=== PATIENT | male | born 1975 | race Caucasian/White ===

== ENCOUNTER 2022-07-15 20:41 | Emergency (ER) | payer OTHER ==
[~2022-07-15] VITALS: Ht 188 cm; Wt 99.1 kg
[2022-07-15] VITALS (7 sets, daily range): BP systolic 110–121; BP diastolic 74–88
[2022-07-15] MEDS ORDERED: ULTRAM50 MG PO (22:40)
[2022-07-15] MEDS ORDERED: CYCLOBENZAPRINE10 MG PO (22:42)
== END 2022-07-15 22:30 | disposition home or self-care (01) | DRG 563 ==
LOC: ED 20:41
DX: S39.012A Strain of muscle, fascia and tendon of lower back, initial encounter (principal); S29.012A Strain of muscle and tendon of back wall of thorax, initial encounter; R25.2 Cramp and spasm

== ENCOUNTER 2022-11-28 19:26 | Emergency (ER) | payer OTHER, MEDICARE ==
[2022-11-28] VITALS (14 sets, daily range): BP systolic 99–121; BP diastolic 75–86
[~2022-11-28] VITALS: Ht 188 cm; Wt 98.4 kg
[~2022-11-28 19:26] MED LIST: CYCLOBENZAPRINE10 MG PO; ULTRAM50 MG PO
[2022-11-28 20:05] LABS: BASO% 0.3 % (0-3); EOS% 0.3 % (0-8); HEMATOCRIT 41.1 % (39.0-50.0); HEMOGLOBIN 13.8 g/dl (14.0-18.0); IMMATURE GRANULOCYTES 0.1 % (0.0-5.0); LYMPH% 36.2 % (15-41); MEAN CORPUSCULAR HGB 31.9 pG CALC (26.0-32.0); MEAN CORPUSCULAR HGB CONC 33.6 g/dL CAL (32.0-36.0); MONO% 7.5 % (2-13); NEUT# 4.42 thou/uL (1.82-7.42); NEUT% 55.6 % (42-76); RED BLOOD COUNT 4.33 mill/uL (4.70-6.10); RED CELL DISTRI WIDTH 13.3 % (11.5-15.5)
[2022-11-28 20:06] LABS: MEAN CELL VOLUME 94.9 fL CALC (80.0-100.0)
[2022-11-28 20:21] LABS: ALBUMIN 3.9 g/dL (3.2-5.0); ALKALINE PHOSPHATASE 92 u/l (38-126); ANION GAP 10 (6-22 (CALC)); BILIRUBIN, TOTAL 0.3 mg/dL (0.2-1.3); BUN 17 mg/dL (9-20); BUN/CREATININE RATIO 14 (12-20 (CALC)); CARBON DIOXIDE 24 mmol/l (22-30); CHLORIDE 112 mmol/l (95-108); CREATININE 1.2 mg/dL (0.7-1.3); GFR FOR AFR.AMER. > 60 ML/MIN (>=60 (CALC)); GFR OTHER RACES > 60 ML/MIN (>=60 (CALC)); POTASSIUM 3.9 mmol/l (3.5-5.1); SGOT/AST 23 u/l (17-59); SODIUM 142 mmol/l (137-146); TOTAL PROTEIN 6.2 g/dL (6.3-8.2)
[2022-11-28] MEDS ORDERED: PREDNISONE20 MG PO (22:56)
[2022-11-28] MEDS ORDERED: VENTOLIN HFA108 MCG PO (22:56)
== END 2022-11-28 23:00 | disposition home or self-care (01) | DRG 203 ==
LOC: ED 19:26
PROVIDERS: Emergency Medicine
DX: J40 Bronchitis, not specified as acute or chronic (principal); I10 Essential (primary) hypertension; E78.5 Hyperlipidemia, unspecified; F17.200 Nicotine dependence, unspecified, uncomplicated; Z20.822 Contact with and (suspected) exposure to COVID-19